=== PATIENT | male | born 1960 | race Caucasian/White ===

== ENCOUNTER 2021-07-27 09:57 | Inpatient (IN) | payer MEDICARE ==
[~2021-07-27] VITALS: Ht 165.1 cm; Wt 74.8 kg
[2021-07-27 12:10] LABS: HEMOGLOBIN 16.9 gm/dl (14.0-17.5); RED BLOOD COUNT 5.06 M/UL (4.20-5.50); WHITE BLOOD COUNT 10.3 K/UL (4.5-11.0)
[2021-07-27 12:43] LABS: BUN/CREATININE RATIO 11 (0-10)
[2021-07-28] MEDS ORDERED: ALBUTEROL0.63 MG/3 INH (14:57)
[2021-07-28] MEDS ORDERED: AMITRIPTYLINE H25 MG PO (14:58)
[2021-07-28] MEDS ORDERED: BISOPROLOL-HCT1 EAC1 PO (14:58)
[2021-07-28] MEDS ORDERED: PROTONIX 40 MG40 M1 PO (14:59)
[2021-07-28] MEDS ORDERED: VOLTAREN ARTHRI20 GM TOP (14:59)
[2021-07-28] MEDS ORDERED: RESTORIL 30 MG30 MG PO (15:00)
[2021-07-28] MEDS ORDERED: XANAX0.5 MG PO (15:00)
[2021-07-28] MEDS ORDERED: MELATONIN10 M2 PO (20:06)
[2021-07-29 11:16] LABS: RED BLOOD COUNT 4.77 M/UL (4.20-5.50)
[2021-07-29 11:18] LABS: HEMOGLOBIN 14.7 gm/dl (14.0-17.5); WHITE BLOOD COUNT 7.1 K/UL (4.5-11.0)
[2021-07-29 11:34] LABS: BUN/CREATININE RATIO 9 (0-10)
[2021-07-29] MEDS ORDERED: PROVENTIL HFA6.7 GM INH (16:08)
[2021-07-30 05:24] LABS: HEMOGLOBIN 14.3 gm/dl (14.0-17.5); RED BLOOD COUNT 4.56 M/UL (4.20-5.50); WHITE BLOOD COUNT 6.6 K/UL (4.5-11.0)
[2021-07-30 05:44] LABS: BUN/CREATININE RATIO 13 (0-10)
[2021-07-31] MEDS ORDERED: KEPPRA 250 MG250 MG PO (09:13)
== END 2021-08-01 14:04 | disposition home or self-care (01) | DRG 896 ==
LOC: ER1 09:57 → M/S 07-29 09:50 → CDU 07-29 09:50 → ZOBSOF 07-29 10:14 → CDU 07-29 10:14 → M/S 07-29 20:25
PROVIDERS: Family Medicine; ADMIT Internal Medicine
PROC: HZ2ZZZZ Detoxification Services for Substance Abuse Treatment (ICD-10-PCS; 2021-07-29)
PROC: 4A00X4Z Measurement of Central Nervous Electrical Activity, External Approach (ICD-10-PCS; principal; 2021-07-30)
DX: F13.20 Sedative, hypnotic or anxiolytic dependence, uncomplicated (principal); G93.41 Metabolic encephalopathy; S32.019A Unspecified fracture of first lumbar vertebra, initial encounter for closed fracture; R56.9 Unspecified convulsions; F10.10 Alcohol abuse, uncomplicated; I10 Essential (primary) hypertension; Z20.822 Contact with and (suspected) exposure to COVID-19; E11.9 Type 2 diabetes mellitus without complications; H53.002 Unspecified amblyopia, left eye; F41.9 Anxiety disorder, unspecified; K21.9 Gastro-esophageal reflux disease without esophagitis; Z90.49 Acquired absence of other specified parts of digestive tract; Z86.73 Personal history of transient ischemic attack (TIA), and cerebral infarction without residual deficits; Z82.49 Family history of ischemic heart disease and other diseases of the circulatory system; Z88.1 Allergy status to other antibiotic agents; Z88.8 Allergy status to other drugs, medicaments and biological substances; W19.XXXA Unspecified fall, initial encounter
CPT/HCPCS: 36415; 70450; 70496; 70498; 70551; 71045; 72125; 72128; 72131; 73030; 73060; 73090; 80048; 80053; 80307; 81001; 82009; 82140; 82550; 82553; 82962; 83605; 83690; 83735; 83874; 84439; 84443; 84484; 85025; 85610; 93005; 94760; 95819; 96374; 97161; 99285; G0480; J1650; J3411; J3475; J7030; J7040; Q9967; U0002